=== PATIENT | female | born 1950 | race African-American/Black ===

== ENCOUNTER 2016-07-04 07:55 | Emergency (ER) | payer OTHER ==
--- NOTE | ~2016-07-04 | CR172 ---
[facility] A Service of [facility] & [facility] / [facility] RADIOLOGY TEXT RESULTS PATIENT: CRYSTAL JOHANSEN LOCATION: [facility] : 50 UNIT #: [id number] AGE: [address]: Deejay Potts MD SEX: F ORDER DR: [id number] [facility] [address] [address] [id number] E MR#: [id number] Acc #: [id number] NAME: CRYSTAL JOHANSEN : 1950 SEX: F STUDY DATE/TIME: 07/04/2016 7:41 UNIT: [facility] ROOM: STUDY DESCRIPTION: CR Knee 3 Views Lt Attending Physician: Deejay Potts M.D. Ordering Physician: Deejay Potts M.D. Primary Care Physician: Guillermo LambPRobynRAdrián MEDICAL IMAGING REPORT This report is preliminary unless electronic signature is present EXAM Left knee series dated 07/04/2016 COMPARISON None. HISTORY Pain and swelling for a month. FINDINGS 3 views of the left knee were obtained. Prominent spurs are noted in the tibiofemoral and patellofemoral joints relating to arthritic change. There is probably mild decrease in joint space associated with that particularly involving the lateral patellofemoral and lateral tibiofemoral compartments. No superimposed acute displaced fracture, dislocation or obvious joint effusion. Dictated by... Paula Crook M.D. THIS IS AN ELECTRONICALLY VERIFIED REPORT Paula Crook M.D. at 07/05/2016 11:06 AM CPR/nelda TD: 07/04/2016 08:54 JOB #: [id number] MEDICAL IMAGING REPORT Page 1 of 1 COPY
[~2016-07-04 07:55] MED LIST: ACETAMINOPHEN PO; ACETAMINOPHEN500 M2 PO; ALLOPURINOL300 MG PO; AVALIDE 150/12.1 TAB; AVAPRO PO; BP PILL; CARDIZEM CD240 M1 PO; CELEBREX PO; CERTAGEN PO; CLARITIN10 M2 PO; CLARITIN10 MG PO; DARVOCET-N 1001 TA2 PO; DETROL LA; DITROPAN PO; DITROPAN5 MG PO; DOC-Q-LACE100 MG PO; FLEXERIL10 M1 PO; FLEXERIL10 MG PO; GABAPENTIN300 MG PO; GLUCOTROL; GLUCOTROL PO; HUMALOG100 U/ML SUBQ; IBUPROFEN PO; IBUPROFEN800 MG PO; IRBESARTAN-HCT1 EAC1 PO; LASIX PO; LEVAQUIN PO; LEVEMIR SUBQ; LEVEMIR100 U/ML SQ; LEVOTHYROXINE100 MCG PO; LIPITOR PO; LISINOPRIL PO; METFORMIN; MICRO-K; NEURONTIN300 MG PO; NORVASC PO; ORUDIS75 M1 PO; PATIENT'S PHARMACY; PHENERGAN DM; POTASSIUM CHLO10 MEQ PO; RANITIDINE HCL150 M1 PO; ROBAXIN; SIMVASTATIN40 MG PO; STARLIX PO; SYNTHROID; SYNTHROID PO; TRICOR PO; TRICOR145 MG PO; ULTRAM PO; VITAMIN C PO; VITAMIN C500 M3 PO; VITAMIN D 4001 UDTAB PO; VITAMIN D 50,000 PO; VITAMIN D31000 UNI1 PO; ZANTAC PO; ZETIA PO; ZYLOPRIM PO; ZYRTEC; [UNRECOGNIZED DRUG - OTHER] PO; [UNRECOGNIZED DRUG - REMARK]
[2016-07-04 08:05] LABS: BASOPHIL# 0.1 X10e3 (0-0.3); EOSINOPHIL# 0.2 X10e3 (0-0.7); EOSINOPHIL% 3.5 % (0.0-7.0); HEMATOCRIT 39.8 % (35.0-45.0); HEMOGLOBIN 12.5 gm/dL (12.0-16.0); LYMPHOCYTE# 1.3 X10e3 (1.0-3.5); LYMPHOCYTE% 21.4 % (17.0-45.0); MEAN CELL VOLUME 85.6 FL (83-96); MEAN CORPUSCULAR HEMOGLOBIN 26.8 PG (28-34); MEAN CORPUSCULAR HGB CONC 31.4 g/dL (30-36); MEAN PLATELET VOLUME 9.4 FL (6.5-11.5); MONOCYTE# 0.4 X10e3 (0-1.0); NEUTROPHIL# 4.2 X10e3 (1.5-7.1); NEUTROPHIL% 67.1 % (40-75); PLATELET COUNT 236 X10e3 (140-420); RED BLOOD COUNT 4.65 X10e (3.90-5.30); RED CELL DISTRIBUTION WIDTH 17.3 % (11.0-15.5); WHITE BLOOD COUNT 6.2 X10e3 (4.0-10.5)
[2016-07-04 08:07] LABS: DIFF IND NO
[2016-07-04 08:36] LABS: ALBUMIN SERUM 3.4 g/dL (3.5-5.0); BILIRUBIN, DIRECT 0.1 mg/dL (0.0-0.2); BILIRUBIN,INDIRECT 0.3 mg/dL (0.0-0.9); BILIRUBIN,TOTAL 0.4 mg/dL (0.2-2.0); CALCIUM SERUM 9.6 mg/dL (8.4-10.2); CREATININE SERUM 1.3 mg/dL (0.6-1.4); GLOM FILT RATE Estimated 49.5 mL/min (>60); POTASSIUM 4.3 mmol/L (3.5-5.1); PROTEIN TOTAL SERUM 7.6 g/dL (6.0-8.3)
[2016-11-20] MEDS ORDERED: ACETAMINOPHEN500 M6 PO (18:36)
[2016-11-20] MEDS ORDERED: ALLOPURINOL300 MG PO (18:37)
[2016-11-20] MEDS ORDERED: FLEXERIL10 MG PO (18:38)
[2016-11-20] MEDS ORDERED: ZYRTEC10 M1 PO (18:38)
[2016-11-20] MEDS ORDERED: CARDIZEM60 M1 PO (18:40)
[2016-11-20] MEDS ORDERED: DIPHENHYDRAMINE50 M1 PO (18:41)
[2016-11-20] MEDS ORDERED: DOC-Q-LACE100 MG PO (18:42)
[2016-11-20] MEDS ORDERED: FUROSEMIDE40 MG PO (18:43)
[2016-11-20] MEDS ORDERED: GABAPENTIN400 M2 PO (18:43)
[2016-11-20] MEDS ORDERED: HUMALOG100 UNIT/1 SUBQ (18:44)
[2016-11-20] MEDS ORDERED: AVAPRO300 M1 PO (18:45)
[2016-11-20] MEDS ORDERED: SYNTHROID125 PO (18:46)
[2016-11-20] MEDS ORDERED: LEVEMIR100 UNITS/ SUBQ (18:46)
[2016-11-20] MEDS ORDERED: MAG-OXIDE400 MG PO (18:47)
[2016-11-20] MEDS ORDERED: PRILOSEC PO (18:48)
[2016-11-20] MEDS ORDERED: DITROPAN5 MG PO (18:48)
[2016-11-20] MEDS ORDERED: SIMVASTATIN40 MG PO (18:49)
[2016-11-20] MEDS ORDERED: VITAMIN D31000 UNIT PO (18:50)
[2016-11-20] MEDS ORDERED: CLOBETASOL 0.0560 GM TOP (18:50)
[2016-11-20] MEDS ORDERED: ZETIA PO (18:50)
[2016-11-20] MEDS ORDERED: K-DUR20 ME1 PO (18:52)
== END 2016-07-04 09:23 | disposition home or self-care (01) ==
LOC: CED 07:55
PROVIDERS: Emergency Medicine
DX: M79.89 Other specified soft tissue disorders (principal); M25.562 Pain in left knee; I12.9 Hypertensive chronic kidney disease with stage 1 through stage 4 chronic kidney disease, or unspecified chronic kidney disease; N18.9 Chronic kidney disease, unspecified; E11.9 Type 2 diabetes mellitus without complications; J45.909 Unspecified asthma, uncomplicated; Z88.8 Allergy status to other drugs, medicaments and biological substances; K21.9 Gastro-esophageal reflux disease without esophagitis; R06.09 Other forms of dyspnea; Z79.4 Long term (current) use of insulin
CPT/HCPCS: 36415; 73562; 80048; 80076; 83880; 85025; 99283; J1940

== ENCOUNTER → 2016-09-26 | Outpatient (CLI) | payer OTHER ==
[~2016-09-26] MED LIST changes: +ACETAMINOPHEN500 M6 PO; +AVAPRO300 M1 PO; +CARDIZEM60 M1 PO; +CLOBETASOL 0.0560 GM TOP; +DIPHENHYDRAMINE50 M1 PO; +FUROSEMIDE40 MG PO; +GABAPENTIN400 M2 PO; +HUMALOG100 UNIT/1 SUBQ; +K-DUR20 ME1 PO; +LEVEMIR100 UNITS/ SUBQ; +MAG-OXIDE400 MG PO; +PRILOSEC PO; +SYNTHROID125 PO; +VITAMIN D31000 UNIT PO; +ZYRTEC10 M1 PO
--- NOTE | ~2016-09-26 | US98 ---
[facility] A Service of [facility] RADIOLOGY TEXT RESULTS PATIENT: CRYSTAL JOHANSEN LOCATION: [facility] : 50 UNIT #: [id number] AGE: [address]: Jessa Francis SEX: F ORDER DR: [id number] [facility] [address] [place], [place] [address] [id number] O MR#: [id number] Acc #: [id number] NAME: CRYSTAL JOHANSEN. : 1950 SEX: F STUDY DATE/TIME: 09/26/2016 10:24 UNIT: [facility] ROOM: STUDY DESCRIPTION: US Pelvic Non-OB Complete Attending Physician: Jessa Francis A.P.R.N. Referring Physician: Jessa Francis A.P.R.N. Ordering Physician: Jessa Francis A.P.R.N. Primary Care Physician: Jessa Francis A.P.R.N. MEDICAL IMAGING REPORT This report is preliminary unless electronic signature is present REVISED REPORT SEE ADDENDUM EXAM Pelvic ultrasound INDICATIONS Irregular vaginal bleeding. Patient reports discontinuation of hormone replacement therapy. Irregular bleeding since 2014. PROCEDURE Berkowitz-scale and Doppler imaging of the pelvis via transabdominal and transvaginal approach. COMPARISON 08/31/2014 FINDINGS The uterus measures 7.2 x 2.659 x 2.5 cm. The study is technically difficult secondary to body habitus. The endometrium is not well seen but appears to be thin measuring approximately 1 mm in thickness. The ovaries are not clearly seen on this study. No appreciable left adnexal mass or pelvic fluid. IMPRESSION 1. Difficult study secondary to body habitus. 2. Endometrium appears to be than on the study. 3. The ovaries are not clearly seen. Dictated by... Marck Peralta M.D. [facility] A Service of [facility] RADIOLOGY TEXT RESULTS PATIENT: CRYSTAL JOHANSEN LOCATION: [facility] : 50 UNIT #: [id number] AGE: [address]: Jessa Francis SEX: F ORDER DR: THIS IS AN ELECTRONICALLY VERIFIED REPORT Marck Peralta M.D. at 09/30/2016 8:27 AM HETAL/vijaya TD: 09/29/2016 12:09 JOB #: [id number] ADDENDUM Impression number 2 should read the endometrium appears thin on this study. Dictated by... Marck Peralta M.D. THIS IS AN ELECTRONICALLY VERIFIED REPORT Marck Peralta M.D. at 10/16/2016 7:09 AM Trish TD: 10/14/2016 16:28 JOB #: [id number] MEDICAL IMAGING REPORT Page 1 of 1 COPY
== END | disposition home or self-care (01) ==
LOC: CWCC 09:52
DX: N85.00 Endometrial hyperplasia, unspecified (principal)
CPT/HCPCS: 76830; 76856